=== PATIENT | male | born 2000 | race African-American/Black ===

== ENCOUNTER 2019-04-16 16:03 | Emergency (ER) | payer MEDICAID, OTHER ==
[~2019-04-16] VITALS: Ht 180.3 cm; Wt 105.0 kg
[2019-04-16 19:36] VITALS: BP 124/64
== END 2019-04-16 19:36 | disposition home or self-care (01) ==
LOC: ER 16:19
DX: J02.9 Acute pharyngitis, unspecified (principal); R50.81 Fever presenting with conditions classified elsewhere
CPT/HCPCS: 99283